=== PATIENT | male | born 1975 | race Caucasian/White ===

== ENCOUNTER 2016-08-16 10:17 | Inpatient (IN) | payer OTHER ==
[~2016-08-16] VITALS: Ht 172.7 cm; Wt 85.8 kg
[~2016-08-16 10:17] MED LIST: NOHOMEMEDS
[2016-08-16 11:14] LABS: BASOPHIL COUNT 0.1 K/uL (0-0.1); EOSINOPHIL (%) 0 % (0-5); HEMATOCRIT 49.6 % (38.0-50.0); IMMATURE GRANULOCYTE (%) 0.9 % (0.0-0.7); IMMATURE GRANULOCYTE COUNT 0.3 K/uL; INSTRUMENT ABS NEUTROPHIL CT 25.2 K/uL; LYMPHOCYTE COUNT 1.3 K/uL (1.0-2.8); MCH 29.6 PG (29.0-34.0); MCHC 32.7 G/DL (30.0-36.0); MCV 90.5 FL (86-99); MEAN PLAT.VOLUME 11.2 uM^3 (9.0-12.4); MONOCYTE (%) 7.7 % (3-12); MONOCYTE COUNT 2.2 K/uL (0-0.8); NEUTROPHIL (%) 86.9 % (45-76); NEUTROPHIL COUNT 25.2 K/uL (1.8-6.4); PLATELET COUNT 258 K/uL (156-360); RBC DIS.WIDTH-CV 12.7 % (11.8-14.6); RBC DIS.WIDTH-SD 42.2 % (39-53); RED BLOOD COUNT 5.48 M/uL (4.00-5.50)
[2016-08-16 11:30] LABS: CHLORIDE 104 mEq/L (99-109); POTASSIUM 5.9 mEq/L (3.7-5.4); SODIUM 139 mEq/L (136-147)
[2016-08-16 11:31] LABS: GLUCOSE 160 mg/dL (70-99)
[2016-08-16 11:33] LABS: ANION GAP 19 MEQ/L (2-14)
[2016-08-16 11:35] LABS: GFR ESTIMATE (CALCULATED) 27 mL/min/
[2016-08-16 11:36] LABS: UREA NITROGEN (BUN) 34 mg/dL (9-23)
[2016-08-16 13:52] LABS: ADD MIUA? YES; BILIRUBIN NEGATIVE; BLOOD LARGE; COLOR AMBER ((YELLOW)); GLUCOSE (STRIP) 50; KETONES NEGATIVE; LEUKOCYTES NEGATIVE; NITRITE NEGATIVE; PROTEIN (STRIP) 100; SPECIFIC GRAVITY 1.017 (1.000-1.030); UROBILINOGEN 0.2 MG/DL (0.2-1.0)
[2016-08-16 14:07] LABS: BACTERIA RARE /HPF; BUDDING YEAST 1+; EPITHELIAL CELLS RARE /HPF; HYALINE CASTS 0-5 /LPF; MUCUS TRACE /LPF; RED BLOOD CELLS 0-5 /HPF (0-5); UCUL ADDED? NO; WHITE BLOOD CELLS 0-5 /HPF (0-5)
[2016-08-16 15:53] LABS: UR CREATININE CONCENTRATION 271.1 MG/DL
[2016-08-16 17:20] LABS: CK-MB 877.6 ng/mL (0.0-4.9)
[2016-08-16 17:49] LABS: DIRECT BILIRUBIN 0.1 mg/dL (0.0-0.3); TOTAL BILIRUBIN 0.3 MG/DL (0.0-1.0)
[2016-08-16 17:51] LABS: TOTAL CK 50815 IU/L (1-294)
[2016-08-16 17:52] LABS: CREATINE KINASE 50815 IU/L (1-294)
[2016-08-16 17:54] LABS: ALKALINE PHOSPHATASE 68 IU/L (3-129)
[2016-08-16 17:59] VITALS: BP 117/76
[2016-08-16 19:31] VITALS: BP 110/78
[2016-08-16 19:37] VITALS: BP 110/78
[2016-08-16 21:14] VITALS: BP 110/80
[2016-08-16 23:22] VITALS: BP 122/85
[2016-08-17 03:00] VITALS: BP 123/81
[2016-08-17 07:15] VITALS: BP 126/77
[2016-08-17 08:16] LABS: HEMATOCRIT 40.3 % (38.0-50.0); MCH 29.8 PG (29.0-34.0); MCHC 33.7 G/DL (30.0-36.0); MCV 88.4 FL (86-99); MEAN PLAT.VOLUME 11.3 uM^3 (9.0-12.4); PLATELET COUNT 207 K/uL (156-360); RBC DIS.WIDTH-SD 42.4 % (39-53); RED BLOOD COUNT 4.56 M/uL (4.00-5.50); WHITE BLOOD COUNT 19.6 K/uL (4.1-10.2)
[2016-08-17 08:21] LABS: ALKALINE PHOSPHATASE 67 IU/L (3-129); ANION GAP 11 MEQ/L (2-14); CHLORIDE 103 MEQ/L (99-109); SAMPLE HEMOLYSIS CHECK 0; SAMPLE ICTERIC CHECK 0; SAMPLE LIPEMIA CHECK 0; SODIUM 133 MEQ/L (136-147); UREA NITROGEN (BUN) 47 mg/dL (9-23)
[2016-08-17 08:25] LABS: GFR ESTIMATE (CALCULATED) 18 mL/min/; GLUCOSE 115 mg/dL (70-99); POTASSIUM 4.5 MEQ/L (3.7-5.4); TOTAL BILIRUBIN 0.5 MG/DL (0.0-1.0)
[2016-08-17 09:51] LABS: CREATINE KINASE 57500 IU/L (1-294)
[2016-08-17 12:00] VITALS: BP 127/84
[2016-08-17 15:42] VITALS: BP 1239/89; BP 129/89
[2016-08-17 20:00] VITALS: BP 127/74
[2016-08-17 23:55] VITALS: BP 126/79
[2016-08-18 03:43] VITALS: BP 127/77
[2016-08-18 06:00] LABS: BASOPHIL COUNT 0.1 K/uL (0-0.1); EOSINOPHIL (%) 2.7 % (0-5); EOSINOPHIL COUNT 0.4 K/uL (0-0.3); HEMATOCRIT 36.8 % (38.0-50.0); IMMATURE GRANULOCYTE (%) 0.5 % (0.0-0.7); IMMATURE GRANULOCYTE COUNT 0.1 K/uL; INSTRUMENT ABS NEUTROPHIL CT 10.6 K/uL; LYMPHOCYTE COUNT 1.8 K/uL (1.0-2.8); MCH 28.9 PG (29.0-34.0); MCHC 32.9 G/DL (30.0-36.0); MEAN PLAT.VOLUME 11.3 uM^3 (9.0-12.4); MONOCYTE (%) 10.5 % (3-12); MONOCYTE COUNT 1.5 K/uL (0-0.8); NEUTROPHIL (%) 73.1 % (45-76); NEUTROPHIL COUNT 10.6 K/uL (1.8-6.4); PLATELET COUNT 170 K/uL (156-360); RBC DIS.WIDTH-CV 13.1 % (11.8-14.6); RBC DIS.WIDTH-SD 42.6 % (39-53); RED BLOOD COUNT 4.18 M/uL (4.00-5.50); WHITE BLOOD COUNT 14.4 K/uL (4.1-10.2)
[2016-08-18 06:41] LABS: CHLORIDE 108 mEq/L (99-109); POTASSIUM 3.9 mEq/L (3.7-5.4); SODIUM 135 mEq/L (136-147)
[2016-08-18 06:43] LABS: GLUCOSE 115 mg/dL (70-99)
[2016-08-18 06:45] LABS: ANION GAP 13 MEQ/L (2-14); TOTAL BILIRUBIN 0.6 mg/dL (0.0-1.0)
[2016-08-18 06:47] LABS: ALKALINE PHOSPHATASE 59 IU/L (3-129); GFR ESTIMATE (CALCULATED) 10 mL/min/
[2016-08-18 06:48] LABS: UREA NITROGEN (BUN) 53 mg/dL (9-23)
[2016-08-18 06:56] LABS: CK-MB 254.3 ng/mL (0.0-4.9)
[2016-08-18 07:40] VITALS: BP 122/79
[2016-08-18 09:38] LABS: CREATINE KINASE 37040 IU/L (1-294)
[2016-08-18 09:57] LABS: TOTAL CK 37040 IU/L (1-294)
[2016-08-18 19:30] VITALS: BP 127/75
[2016-08-19] VITALS: BP 120/68
[2016-08-19 04:30] VITALS: BP 116/74
[2016-08-19 06:27] LABS: EOSINOPHIL (%) 2.2 % (0-5); EOSINOPHIL COUNT 0.3 K/uL (0-0.3); HEMATOCRIT 33.7 % (38.0-50.0); IMMATURE GRANULOCYTE (%) 0.4 % (0.0-0.7); INSTRUMENT ABS NEUTROPHIL CT 8.2 K/uL; LYMPHOCYTE COUNT 1.6 K/uL (1.0-2.8); MCH 29.4 PG (29.0-34.0); MCHC 33.5 G/DL (30.0-36.0); MCV 87.5 FL (86-99); MEAN PLAT.VOLUME 11.3 uM^3 (9.0-12.4); MONOCYTE (%) 9.3 % (3-12); NEUTROPHIL (%) 73.2 % (45-76); NEUTROPHIL COUNT 8.2 K/uL (1.8-6.4); PLATELET COUNT 166 K/uL (156-360); RBC DIS.WIDTH-CV 12.8 % (11.8-14.6); RBC DIS.WIDTH-SD 40.9 % (39-53); RED BLOOD COUNT 3.85 M/uL (4.00-5.50); WHITE BLOOD COUNT 11.2 K/uL (4.1-10.2)
[2016-08-19 07:05] LABS: ALKALINE PHOSPHATASE 55 IU/L (3-129); ANION GAP 8 MEQ/L (2-14); CHLORIDE 103 MEQ/L (99-109); GFR ESTIMATE (CALCULATED) 12 mL/min/; GLUCOSE 106 mg/dL (70-99); POTASSIUM 3.5 MEQ/L (3.7-5.4); SAMPLE HEMOLYSIS CHECK 0; SAMPLE ICTERIC CHECK 0; SAMPLE LIPEMIA CHECK 0; SODIUM 136 MEQ/L (136-147); TOTAL BILIRUBIN 0.5 MG/DL (0.0-1.0); UREA NITROGEN (BUN) 30 mg/dL (9-23)
[2016-08-19 12:47] VITALS: BP 133/74
[2016-08-19 15:38] VITALS: BP 134/78
[2016-08-19 21:50] VITALS: BP 124/79
[2016-08-20 00:15] VITALS: BP 128/68
[2016-08-20 04:30] VITALS: BP 141/82
[2016-08-20 05:41] LABS: BASOPHIL COUNT 0.1 K/uL (0-0.1); EOSINOPHIL (%) 1.6 % (0-5); EOSINOPHIL COUNT 0.2 K/uL (0-0.3); HEMATOCRIT 37.2 % (38.0-50.0); IMMATURE GRANULOCYTE (%) 0.4 % (0.0-0.7); IMMATURE GRANULOCYTE COUNT 0.1 K/uL; INSTRUMENT ABS NEUTROPHIL CT 10.3 K/uL; LYMPHOCYTE COUNT 1.5 K/uL (1.0-2.8); MCHC 33.3 G/DL (30.0-36.0); MCV 86.9 FL (86-99); MEAN PLAT.VOLUME 10.6 uM^3 (9.0-12.4); MONOCYTE (%) 9.1 % (3-12); MONOCYTE COUNT 1.2 K/uL (0-0.8); NEUTROPHIL (%) 77.2 % (45-76); NEUTROPHIL COUNT 10.3 K/uL (1.8-6.4); PLATELET COUNT 195 K/uL (156-360); RBC DIS.WIDTH-CV 12.3 % (11.8-14.6); RBC DIS.WIDTH-SD 39.2 % (39-53); RED BLOOD COUNT 4.28 M/uL (4.00-5.50); WHITE BLOOD COUNT 13.4 K/uL (4.1-10.2)
[2016-08-20 06:29] LABS: CHLORIDE 100 MEQ/L (99-109); GFR ESTIMATE (CALCULATED) 11 mL/min/; GLUCOSE 93 mg/dL (70-99); POTASSIUM 3.4 MEQ/L (3.7-5.4); SODIUM 134 MEQ/L (136-147); UREA NITROGEN (BUN) 23 mg/dL (9-23)
[2016-08-20 06:38] LABS: ANION GAP 7 MEQ/L (2-14); SAMPLE HEMOLYSIS CHECK 0; SAMPLE ICTERIC CHECK 0; SAMPLE LIPEMIA CHECK 0
[2016-08-20 06:39] LABS: CREATINE KINASE 10012 IU/L (1-294)
[2016-08-20 07:15] VITALS: BP 127/78
[2016-08-20 11:05] VITALS: BP 131/79
[2016-08-20 12:04] LABS: HBSG INDEX 0.25
[2016-08-20 12:05] LABS: AHBS INDEX 0; HEPATITIS B SURFACE ANTIBODY Nonreactive
[2016-08-20 15:29] VITALS: BP 140/88
[2016-08-21 05:22] LABS: CHLORIDE 101 mEq/L (99-109); POTASSIUM 3.5 mEq/L (3.7-5.4); SODIUM 135 mEq/L (136-147)
[2016-08-21 05:25] LABS: GLUCOSE 89 mg/dL (70-99)
[2016-08-21 05:26] LABS: ANION GAP 12 MEQ/L (2-14)
[2016-08-21 05:28] LABS: ALKALINE PHOSPHATASE 50 IU/L (3-129)
[2016-08-21 05:29] LABS: UREA NITROGEN (BUN) 33 mg/dL (9-23)
[2016-08-21 05:30] LABS: DIRECT BILIRUBIN 0.1 mg/dL (0.0-0.3); GFR ESTIMATE (CALCULATED) 8 mL/min/; TOTAL BILIRUBIN 0.3 mg/dL (0.0-1.0)
[2016-08-21 06:03] LABS: CREATINE KINASE 6254 IU/L (1-294)
[2016-08-21 07:06] VITALS: BP 132/88
[2016-08-21 11:08] VITALS: BP 155/63
[2016-08-21 17:49] VITALS: BP 144/77
[2016-08-21 23:58] VITALS: BP 132/74
[2016-08-22 04:18] VITALS: BP 138/81
[2016-08-22 07:21] LABS: ANION GAP 13 MEQ/L (2-14); CHLORIDE 100 MEQ/L (99-109); GFR ESTIMATE (CALCULATED) 9 mL/min/; GLUCOSE 73 mg/dL (70-99); POTASSIUM 3.9 MEQ/L (3.7-5.4); SAMPLE HEMOLYSIS CHECK 1; SAMPLE ICTERIC CHECK 0; SAMPLE LIPEMIA CHECK 0; SODIUM 134 MEQ/L (136-147); UREA NITROGEN (BUN) 29 mg/dL (9-23)
[2016-08-22 07:22] LABS: CREATINE KINASE 4042 IU/L (1-294)
[2016-08-22 07:36] VITALS: BP 129/72
[2016-08-22 11:25] VITALS: BP 145/79
[2016-08-22 15:15] VITALS: BP 142/80
[2016-08-22 19:44] VITALS: BP 145/76
[2016-08-23] VITALS (7 sets, daily range): BP systolic 129–154; BP diastolic 71–83
[2016-08-23 08:16] LABS: HEMATOCRIT 33.6 % (38.0-50.0); MCH 28.9 PG (29.0-34.0); MCHC 33.3 G/DL (30.0-36.0); MCV 86.8 FL (86-99); MEAN PLAT.VOLUME 10.7 uM^3 (9.0-12.4); PLATELET COUNT 174 K/uL (156-360); RBC DIS.WIDTH-CV 12.9 % (11.8-14.6); RBC DIS.WIDTH-SD 40.3 % (39-53); RED BLOOD COUNT 3.87 M/uL (4.00-5.50); WHITE BLOOD COUNT 13.9 K/uL (4.1-10.2)
[2016-08-23 09:18] LABS: GLUCOSE 87 mg/dL (70-99); UREA NITROGEN (BUN) 40 mg/dL (9-23)
[2016-08-23 09:19] LABS: CHLORIDE 99 MEQ/L (99-109); CREATINE KINASE 2751 IU/L (1-294); GFR ESTIMATE (CALCULATED) 7 mL/min/; POTASSIUM 3.5 MEQ/L (3.7-5.4); SODIUM 134 MEQ/L (136-147)
[2016-08-23 09:29] LABS: TOTAL CK 2751 IU/L (1-294)
[2016-08-24 07:05] LABS: HEMATOCRIT 33.6 % (38.0-50.0); MCH 29.5 PG (29.0-34.0); MCHC 33.3 G/DL (30.0-36.0); MCV 88.4 FL (86-99); MEAN PLAT.VOLUME 11.1 uM^3 (9.0-12.4); PLATELET COUNT 154 K/uL (156-360); RBC DIS.WIDTH-CV 13.1 % (11.8-14.6); RBC DIS.WIDTH-SD 42.5 % (39-53); WHITE BLOOD COUNT 11.7 K/uL (4.1-10.2)
[2016-08-24 07:29] LABS: ANION GAP 11 MEQ/L (2-14); CHLORIDE 100 MEQ/L (99-109); GFR ESTIMATE (CALCULATED) 10 mL/min/; GLUCOSE 81 mg/dL (70-99); SAMPLE HEMOLYSIS CHECK 0; SAMPLE ICTERIC CHECK 0; SAMPLE LIPEMIA CHECK 0; SODIUM 133 MEQ/L (136-147); UREA NITROGEN (BUN) 31 mg/dL (9-23)
[2016-08-24 08:23] VITALS: BP 140/80
[2016-08-24 16:43] VITALS: BP 125/75
[2016-08-24 17:00] LABS: CREATINE KINASE 2194 IU/L (1-294)
[2016-08-25 00:24] VITALS: BP 132/83
[2016-08-25 08:43] LABS: ANION GAP 12 MEQ/L (2-14); CHLORIDE 95 MEQ/L (99-109); POTASSIUM 3.6 MEQ/L (3.7-5.4); SAMPLE HEMOLYSIS CHECK 0; SAMPLE ICTERIC CHECK 0; SAMPLE LIPEMIA CHECK 0; SODIUM 129 MEQ/L (136-147)
[2016-08-25 08:44] LABS: HEMATOCRIT 34.9 % (38.0-50.0); MCH 29.9 PG (29.0-34.0); MCHC 34.1 G/DL (30.0-36.0); MCV 87.7 FL (86-99); MEAN PLAT.VOLUME 11.4 uM^3 (9.0-12.4); PLATELET COUNT 183 K/uL (156-360); RBC DIS.WIDTH-CV 13.1 % (11.8-14.6); RED BLOOD COUNT 3.98 M/uL (4.00-5.50); WHITE BLOOD COUNT 12.8 K/uL (4.1-10.2)
[2016-08-25 08:48] LABS: HEMATOCRIT 34.9 % (38.0-50.0); MCH 29.9 PG (29.0-34.0); MCHC 34.1 G/DL (30.0-36.0); MCV 87.7 FL (86-99); MEAN PLAT.VOLUME 11.4 uM^3 (9.0-12.4); PLATELET COUNT 183 K/uL (156-360); RBC DIS.WIDTH-CV 13.1 % (11.8-14.6); RED BLOOD COUNT 3.98 M/uL (4.00-5.50); WHITE BLOOD COUNT 12.8 K/uL (4.1-10.2)
[2016-08-25 08:50] LABS: GFR ESTIMATE (CALCULATED) 8 mL/min/; UREA NITROGEN (BUN) 44 mg/dL (9-23)
[2016-08-25 08:52] LABS: GLUCOSE 144 mg/dL (70-99)
[2016-08-25 08:53] LABS: BASOPHIL COUNT 0.1 K/uL (0-0.1); EOSINOPHIL (%) 4.9 % (0-5); EOSINOPHIL COUNT 0.6 K/uL (0-0.3); IMMATURE GRANULOCYTE (%) 0.5 % (0.0-0.7); IMMATURE GRANULOCYTE COUNT 0.1 K/uL; INSTRUMENT ABS NEUTROPHIL CT 9.6 K/uL; LYMPHOCYTE COUNT 1.2 K/uL (1.0-2.8); MONOCYTE (%) 9.4 % (3-12); MONOCYTE COUNT 1.2 K/uL (0-0.8); NEUTROPHIL (%) 75.5 % (45-76); NEUTROPHIL COUNT 9.6 K/uL (1.8-6.4)
[2016-08-25 15:54] VITALS: BP 134/86
[2016-08-25 23:48] VITALS: BP 133/82
[2016-08-26 08:22] LABS: HEMATOCRIT 32.3 % (38.0-50.0); MCH 29.4 PG (29.0-34.0); MCHC 33.1 G/DL (30.0-36.0); MCV 88.7 FL (86-99); PLATELET COUNT 178 K/uL (156-360); RBC DIS.WIDTH-SD 42.6 % (39-53); RED BLOOD COUNT 3.64 M/uL (4.00-5.50); WHITE BLOOD COUNT 7.1 K/uL (4.1-10.2)
[2016-08-26 08:30] LABS: ANION GAP 7 MEQ/L (2-14); CHLORIDE 103 MEQ/L (99-109); CREATINE KINASE 670 IU/L (1-294); GFR ESTIMATE (CALCULATED) 10 mL/min/; POTASSIUM 3.9 MEQ/L (3.7-5.4); SAMPLE HEMOLYSIS CHECK 0; SAMPLE ICTERIC CHECK 0; SAMPLE LIPEMIA CHECK 0; SODIUM 135 MEQ/L (136-147); UREA NITROGEN (BUN) 28 mg/dL (9-23)
[2016-08-26 08:31] LABS: GLUCOSE 100 mg/dL (70-99)
[2016-08-26] MEDS ORDERED: HYDROMORPHONE HC4 MG PO (13:26)
[2016-08-26] MEDS ORDERED: LYRICA50 MG PO (13:26)
== END 2016-08-26 15:36 | disposition home or self-care (01) | DRG 683 ==
LOC: EME 10:17 → EDOF 13:05 → 3EAST 13:05 → 4EAST 13:05 → EDOF 17:01 → 4EAST 19:20 → 3EAST 08-21 13:29
PROVIDERS: Emergency Medicine; Hospitalist; Internal Medicine; Internal Medicine Nephrology; Physician Assistant
PROC: 02HV33Z Insertion of Infusion Device into Superior Vena Cava, Percutaneous Approach (ICD-10-PCS; principal; 2016-08-18)
PROC: 5A1D60Z (ICD-10-PCS; 2016-08-18)
PROC: 02HV33Z Insertion of Infusion Device into Superior Vena Cava, Percutaneous Approach (ICD-10-PCS; 2016-08-23)
DX: N17.9 Acute kidney failure, unspecified (principal); E87.2 Acidosis; L03.116 Cellulitis of left lower limb; G57.32 Lesion of lateral popliteal nerve, left lower limb; E87.5 Hyperkalemia; T79.6XXA Traumatic ischemia of muscle, initial encounter; S91.332A Puncture wound without foreign body, left foot, initial encounter; S91.132A Puncture wound without foreign body of left great toe without damage to nail, initial encounter; D72.829 Elevated white blood cell count, unspecified; M21.372 Foot drop, left foot; F11.10 Opioid abuse, uncomplicated; N18.3 Chronic kidney disease, stage 3 (moderate); E87.6 Hypokalemia; F17.210 Nicotine dependence, cigarettes, uncomplicated; W22.8XXA Striking against or struck by other objects, initial encounter
CPT/HCPCS: 71010; 74150; 76770; 80048; 80048 91; 80053; 80069; 80074; 80076; 80202; 80306 90; 81003; 82436; 82550; 82550 91; 82553; 82570; 83605; 84300; 84450; 84460; 85025; 85027; 86703; 86706; 87040; 87070; 87075; 87205; 87340; 87641; 93971; 97530 GO; 99281; 99285; C1750; C1752; C1769; J0690; J1170; J1644; J2250; J2405; J2543; J3010; J3370; J7030; J7042; J7050; S0020

== ENCOUNTER → 2016-10-11 | Outpatient (CLI) | payer OTHER ==
[~2016-10-11] MED LIST changes: +HYDROMORPHONE HC4 MG PO; +LYRICA50 MG PO
== END | disposition home or self-care (01) ==
LOC: AMB 08:30
PROC: 02PYX3Z Removal of Infusion Device from Great Vessel, External Approach (ICD-10-PCS; principal; 2016-10-11)
DX: Z45.2 Encounter for adjustment and management of vascular access device (principal); N17.9 Acute kidney failure, unspecified